=== PATIENT | female | born 1975 | race Two or more races ===

== ENCOUNTER 2021-11-18 20:47 | Emergency (ER) | payer OTHER ==
[~2021-11-18] VITALS: Ht 160 cm; Wt 59.0 kg
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
[2021-11-18] MEDS ORDERED: KETOROLAC TROMETHAMINE INJ 30 MG/ML VIAL ONE (21:28)
[2021-11-18] MEDS ORDERED: KETOROLAC TROMETHAMINE INJ 60 MG/2 ML VIAL IM ONE (21:30)
[2021-11-18] MEDS ORDERED: NAPR-1164 PO (21:37)
[2021-11-18] MEDS ORDERED: CYCL5TAB PO (21:37)
--- NOTE | 2021-11-18 21:50 | NUR ---
Patient discharged to home in stable condition. Written and verbal after care instructions given. Patient verbalizes understanding of instruction.
[2021-11-18 21:51] VITALS: BP 129/76
== END 2021-11-18 21:51 | disposition home or self-care (01) ==
LOC: ER 20:54
DX: S16.1XXA Strain of muscle, fascia and tendon at neck level, initial encounter (principal); M62.830 Muscle spasm of back; Z60.2 Problems related to living alone; V49.59XA Passenger injured in collision with other motor vehicles in traffic accident, initial encounter; Y93.89 Activity, other specified; Y92.413 State road as the place of occurrence of the external cause; Y99.8 Other external cause status
CPT/HCPCS: 96372; 99283; J1885